=== PATIENT | male | born 1955 | race Asian ===

== ENCOUNTER 2021-04-18 18:05 | Emergency (ER) | payer OTHER ==
[~2021-04-18] VITALS: Ht 170.2 cm; Wt 116.1 kg
[2021-04-18 18:46] LABS: PLATELET COUNT 220 K/uL (142-355)
[2021-04-18 19:14] VITALS: BP 144/89; TEMP 98.8
[2021-04-19] MEDS ORDERED: AMLODIPINE BESYLATE PO (09:00)
[2021-04-19] MEDS ORDERED: ASA LOW DOSE81 MG PO (09:01)
[2021-04-19] MEDS ORDERED: LIPITOR20 MG PO (09:02)
[2021-04-19] MEDS ORDERED: GLIM2TAB PO (09:04)
[2021-04-19] MEDS ORDERED: INSU100I2 SC (09:13)
[2021-04-19] MEDS ORDERED: LISI5TAB10 PO (09:13)
[2021-04-19] MEDS ORDERED: MOBIC15 MG PO (09:14)
[2021-04-19] MEDS ORDERED: PAROXETINE30 MG PO (09:15)
[2021-04-19] MEDS ORDERED: TAMSULOSIN HYD0.4 MG PO (09:16)
[2021-04-19] MEDS ORDERED: PIOGLITAZONE HY30 MG PO (09:16)
[2021-04-19] MEDS ORDERED: [UNRECOGNIZED DRUG - CODE] PO (09:17)
[2021-04-19] MEDS ORDERED: METFORMIN HYD1000 MG PO (09:19)
[2021-04-19] MEDS ORDERED: IBU800 MG PO (09:20)
[2021-04-19] MEDS ORDERED: HYDROCODONE BIT1 TA1 PO (09:20)
== END 2021-04-18 19:14 | disposition still patient (30) ==
LOC: ED 18:05
PROVIDERS: Emergency Medicine
DX: R46.89 Other symptoms and signs involving appearance and behavior (principal); F20.89 Other schizophrenia; Z11.52 Encounter for screening for COVID-19; Z04.6 Encounter for general psychiatric examination, requested by authority
CPT/HCPCS: 36415; 80053; 81000; 85027; 87635; 93005; 99283; U0003

== ENCOUNTER 2022-03-22 21:45 | Emergency (ER) | payer OTHER ==
[~2022-03-22] VITALS: Ht 167.6 cm; Wt 113.4 kg
[~2022-03-22 21:45] MED LIST: AMLODIPINE BESYLATE PO; ASA LOW DOSE81 MG PO; GLIM2TAB PO; HYDROCODONE BIT1 TA1 PO; IBU800 MG PO; INSU100I2 SC; LIPITOR20 MG PO; LISI5TAB10 PO; METFORMIN HYD1000 MG PO; MOBIC15 MG PO; PAROXETINE30 MG PO; PIOGLITAZONE HY30 MG PO; TAMSULOSIN HYD0.4 MG PO; [UNRECOGNIZED DRUG - CODE] PO
[2022-03-22 21:50] VITALS: TEMP 97.8
[2022-03-22 22:12] LABS: PLATELET COUNT 207 K/uL (142-355)
[2022-03-22 23:15] VITALS: BP 159/86
[2022-03-23] MEDS ORDERED: TYLENOL325 MG PO (10:24)
[2022-03-23] MEDS ORDERED: PAROXETINE30 MG PO (10:29)
== END 2022-03-22 23:00 | disposition still patient (30) ==
LOC: ED 21:45
PROVIDERS: Emergency Medicine
DX: F25.8 Other schizoaffective disorders (principal); R45.1 Restlessness and agitation; R46.89 Other symptoms and signs involving appearance and behavior; I10 Essential (primary) hypertension; E11.65 Type 2 diabetes mellitus with hyperglycemia; Z79.4 Long term (current) use of insulin; Z79.84 Long term (current) use of oral hypoglycemic drugs; Z11.52 Encounter for screening for COVID-19; Z04.6 Encounter for general psychiatric examination, requested by authority
CPT/HCPCS: 36415; 80053; 81002; 85027; 87635; 93005; 99283; U0003